=== PATIENT | male | born 1955 | race Caucasian/White ===

== ENCOUNTER 2023-06-16 09:02 | Outpatient (CLI) | payer OTHER ==
[2023-06-16 10:59] LABS: #Basophils 0.1 10x3/uL (0.0-0.2); #Eosinphils 0.1 10x3/uL (0.0-0.5); #Monocytes 0.6 10x3/uL (0.0-1.1); #Neutrophils 2.7 10x3/uL (1.5-8.4); %Basophils 1.1 % (0.0-2.0); %Eosinophils 2.2 % (0.0-6.0); %Lymphocytes 26.1 % (18.0-47.0); %Neutrophils 58.2 % (40.0-75.0); Hematocrit 42.2 % (38.8-50.0); Hemoglobin 14.6 g/dL (13.5-17.5); Mean Corpuscular HGB CONC 34.6 g/dL (32.0-36.0); Mean Corpuscular Volume 95.5 fl (81.2-95.1); Mean Platelet Volume 9.4 fl (7.4-10.4); Platelet Count 180 10x3/uL (150-450); RBC Distribution Width 13.1 % (11.5-14.5); Red Blood Cell (RBC) Count 4.42 10x6/uL (4.32-5.72); White Blood Cell (WBC) Count 4.6 10x3/uL (3.5-10.5)
[2023-06-16 11:29] LABS: Prothrombin Time 10.3 sec (9.5-12.1)
[2023-06-16 11:36] LABS: Anion Gap 12 mmol/L (10-20); BUN (Urea Nitrogen) 17 mg/dL (8.4-25.7); Calc. Creatinine Clearance 0 mL/min (70-130); Calcium 8.9 mg/dL (7.8-10.44); Carbon Dioxide 26 mmol/L (23-31); Chloride 105 mmol/L (98-107); Estimated GFR 83; Glucose 98 mg/dL (80-115); Potassium 3.9 mmol/L (3.5-5.1); Sodium 139 mmol/L (136-145)
== END 2023-06-16 09:03 | disposition home or self-care (01) ==
LOC: LABBT 09:02
PROVIDERS: ATTEND Orthopaedic Surgery
DX: Z01.818 Encounter for other preprocedural examination (principal); M19.012 Primary osteoarthritis, left shoulder
CPT/HCPCS: 80048; 85025; 85610; 93005; 93010

== ENCOUNTER 2023-06-19 06:21 | Observation (INO) | payer OTHER ==
[2023-06-18 12:07] VITALS: BMI 25.0
[2023-06-19] MEDS ORDERED: Midazolam HCl 2 mg/2 ml Vial ONE (07:47)
[2023-06-19] MEDS ORDERED: fentaNYL 50 mcg/mL 1 mL Vial ONE ×2 (07:47→12:53)
[2023-06-19] MEDS ORDERED: Ropivacaine 0.2% HCl/PF 20 ML ONE (07:47)
[2023-06-19] MEDS ORDERED: Ropivacaine 0.5% HCl/PF (150 MG/30 ML VIAL) ONE (07:47)
[2023-06-19] MEDS ORDERED: PROPOFOL 40 ML ONE (07:56)
[2023-06-19] MEDS ORDERED: Vancomycin (BATCH) 1.5 GM/300 ML BAG ONE (08:02)
[2023-06-19] MEDS ORDERED: Rocuronium Bromide 10 MG/ML (10ML VIAL) ONE (08:20)
[2023-06-19] MEDS ORDERED: Sodium Chloride 0.9% 100 ML ONE ×2 (08:24→08:29)
[2023-06-19] MEDS ORDERED: Tranexamic Acid 1,000 MG/10 ML VIAL ONE (08:24)
[2023-06-19] MEDS ORDERED: fentaNYL PF 100 MCG/2 ML SYRINGE ONE (08:26)
[2023-06-19] MEDS ORDERED: CEFAZOLIN 2 GM VIAL ONE (08:29)
[2023-06-19] MEDS ORDERED: fentaNYL 50 mcg/mL 1 mL Vial SLOW IVP PRN (08:53)
[2023-06-19] MEDS ORDERED: traMADol HCl 50 MG TAB PO PRN ×2 (09:00)
[2023-06-19] MEDS ORDERED: Promethazine HCl 25 MG/ML VIAL IM PRN (09:00)
[2023-06-19] MEDS ORDERED: ePHEDrine Sulfate 50 MG/10 ML VIAL ONE (09:00)
[2023-06-19] MEDS ORDERED: Ropivacaine 0.2% 550 ML 550 ML NERVE BLCK SCH (09:00)
[2023-06-19] MEDS ORDERED: Ondansetron PF 4 MG/2 ML Vial IVP PRN (09:00)
[2023-06-19] MEDS ORDERED: HYDROcodone/Acetaminophen 10/325 mg Tablet PO PRN ×2 (09:00)
[2023-06-19] MEDS ORDERED: Zolpidem Tartrate 5 MG TAB PO PRN (09:00)
[2023-06-19] MEDS ORDERED: Ondansetron PF 4 MG/2 ML Vial ONE (09:01)
[2023-06-19] MEDS ORDERED: Dexamethasone 4 mg/ml Vial ONE (09:01)
[2023-06-19] MEDS ORDERED: Vecuronium 10 MG VIAL ONE (10:07)
[2023-06-19] MEDS ORDERED: Ketorolac Tromethamine 30 MG (1 mL) VIAL ONE (10:58)
[2023-06-19] MEDS ORDERED: Lidocaine 2% PF 5 ML VIAL ONE (10:59)
[2023-06-19] MEDS ORDERED: SUGAMMADEX SODIUM 200 MG/2 ML VIAL ONE (11:00)
[2023-06-19] MEDS ORDERED: Acetaminophen 325 MG TAB PO PRN (11:23)
[2023-06-19] MEDS ORDERED: Methocarbamol 500 MG TAB PO PRN (11:23)
[2023-06-19] MEDS ORDERED: Milk Of Magnesia 30 ML UDCUP PO PRN (11:23)
[2023-06-19] MEDS ORDERED: Bisacodyl 10 MG SUPP PR PRN (11:23)
[2023-06-19] MEDS ORDERED: diphenhydrAMINE 50 MG CAP PO PRN (11:23)
[2023-06-19] MEDS: Ketorolac Tromethamine 30 MG (1 mL) VIAL IVP SCH ×2 (14:00→17:18)
[2023-06-19] MEDS: Dextrose 5 %-0.45 % NaCl 1,000 ML IV SCH (14:01)
[2023-06-19] MEDS: CEFAZOLIN 2 GM in Sodium Chloride 0.9% 100 ML IVPB SCH (17:18)
[2023-06-19] MEDS: Famotidine 20 MG TAB PO SCH (21:04)
[2023-06-20] MEDS: Ketorolac Tromethamine 30 MG (1 mL) VIAL IVP SCH ×2 (00:46→06:12)
[2023-06-20] MEDS: CEFAZOLIN 2 GM in Sodium Chloride 0.9% 100 ML IVPB SCH (00:47)
[2023-06-20] MEDS: Dextrose 5 %-0.45 % NaCl 1,000 ML IV SCH (03:24)
[2023-06-20 07:37] VITALS: BP 126/79; TEMP 98
[2023-06-20] MEDS: Famotidine 20 MG TAB PO SCH (08:28)
== END 2023-06-20 10:20 | disposition home or self-care (01) ==
LOC: SDC 06:21 → SJJU 11:48
PROVIDERS: ADMIT Orthopaedic Surgery; ATTEND Orthopaedic Surgery
PROC: 0RRK0JZ Replacement of Left Shoulder Joint with Synthetic Substitute, Open Approach (ICD-10-PCS; principal; 2023-06-19)
DX: M19.012 Primary osteoarthritis, left shoulder (principal); I10 Essential (primary) hypertension; Z98.890 Other specified postprocedural states; Z79.899 Other long term (current) drug therapy; Z88.5 Allergy status to narcotic agent; Z88.0 Allergy status to penicillin
CPT/HCPCS: 23472; 97110 ×2; 97116; 97535; A4306; C1713 ×2; C1776; J3010; J3370; J1100; J1885; J2001; J2250; J2405; J2704; J2795; J3490; J7042